=== PATIENT | male | born 1950 | race Caucasian/White ===

== ENCOUNTER 2019-08-25 21:01 | Observation (INO) ==
[2019-08-25] MEDS ORDERED: 0.9 % Sodium Chloride 1,000 ML IVC ONE (22:07)
[2019-08-25 22:35] LABS: Bilirubin,Urine Small (Negative); Blood,Urine Large (Negative); Clarity,Urine Cloudy (Clear); Color,Urine Dark Yellow (Yellow); Glucose,Urine (UA) Normal (Normal); Ketones,Urine Trace mg/dL (Negative); Leukocyte Esterase,Urine Moderate (Negative); Nitrite,Urine Positive (Negative); PH,Urine 6.5 pH Units (5.0-8.0); Protein,Urine 100 mg/dL (Neg-Trace); Specific Gravity,Urine > 1.030 (1.010-1.025); Urobilinogen,Urine Normal (Normal)
[2019-08-25 22:37] LABS: Bacteria,Urine Many per hpf (None-Few); Hyaline Casts,Urine None Seen per lpf (None-Few); RBC,Urine TNTC per hpf (0-3); Squamous Epithelial Cell,Urine Few per lpf (None-Few); WBC,Urine TNTC per hpf (0-3)
[2019-08-25] MEDS ORDERED: 0.9 % Sodium Chloride 1,000 ML IVC STA (22:41)
[2019-08-25 22:46] LABS: Hemoglobin 12.9 g/dL (12.9-16.9); Immature Platelets 2.1 % (1.1-6.1); Mean Corpuscular HGB Conc 33.1 g/dL (31.6-35.5); Mean Corpuscular Hemoglobin 31.5 pg (28.0-33.3); Mean Corpuscular Volume 95.4 fL (83.0-100.0); Mean Platelet Volume 9.7 fL (9.4-12.4); Red Blood Count 4.09 M/mcL (4.19-5.50)
[2019-08-25 22:51] LABS: Prothrombin Time 10.8 Seconds (9.4-12.1)
[2019-08-25 22:53] LABS: Activated Partial Thrombo Time 27.2 Seconds (26.0-36.0)
[2019-08-25] MEDS ORDERED: Piperacillin/Tazobactam 4.5 GM in 0.9 % Sodium Chloride Mini Bag 100 ML IVPB STA (22:55)
[2019-08-25] MEDS ORDERED: Piperacillin/Tazobactam 3.375 GM in 0.9 % Sodium Chloride Mini Bag 100 ML IVPB ONE (23:00)
[2019-08-25 23:28] LABS: White Blood Count 54.7 K/mcL (4.3-11.1)
[2019-08-25 23:29] LABS: Platelet Count 76 K/mcL (140-400)
[2019-08-25 23:31] LABS: Mean Platelet Volume 10.5 fL (9.4-12.4)
[2019-08-25 23:33] LABS: Hematocrit 38.3 % (37.5-50.1); Hemoglobin 12.5 g/dL (12.9-16.9); Mean Corpuscular HGB Conc 32.6 g/dL (31.6-35.5); Mean Corpuscular Hemoglobin 30.9 pg (28.0-33.3); Mean Corpuscular Volume 94.6 fL (83.0-100.0); Monocytes # 4.3 K/mcL (0.0-1.3); Red Blood Count 4.05 M/mcL (4.19-5.50); Red Cell Distribution Width 16.2 % (11.5-14.5)
[2019-08-25 23:35] LABS: Lymphocytes # 4.4 K/mcL (0.6-4.6); Monocytes # 2.7 K/mcL (0.0-1.3); Neutrophils # 44.3 K/mcL (1.6-8.9); Platelet Estimate Decreased (Normal); Smudge Cells Present (Not Present); Toxic Granulation Present (Not Present)
[2019-08-25 23:38] LABS: BUN/Creatinine Ratio 21 (6-26); Blood Urea Nitrogen 23 mg/dL (8-23); Calcium 9.1 mg/dL (8.6-10.3); Carbon Dioxide 21 mEq/L (23-29); Chloride 106 mEq/L (98-107); Glucose 103 mg/dL (70-105); Osmolality,Calculated 290 (280-300); Potassium 4.1 mEq/L (3.5-5.1); Sodium 138 mEq/L (136-145); Troponin I 0.03 ng/mL (< 0.04); eGFR For African Americans > 60 (> 60); eGFR For Non-African Americans > 60 (> 60)
[2019-08-25 23:43] LABS: White Blood Count 53.6 K/mcL (4.3-11.1)
[2019-08-25 23:44] LABS: Platelet Count 74 K/mcL (140-400)
[2019-08-25 23:59] LABS: Albumin 4.5 g/dL (3.5-5.7); Albumin/Globulin Ratio 1.3 (1.1-2.2); Bilirubin,Indirect 0.3 mg/dL (0.0-1.0); Bilirubin,Total 0.3 mg/dL (0.3-1.0); Globulin 3.4 g/dL (2.4-3.5); Phosphorous 2.8 mg/dL (2.7-4.5); Total Protein 7.9 g/dL (6.4-8.9)
[2019-08-26] MEDS ORDERED: Isovue-370 500 ML BOTTLE IVP ONE ×2 (00:11→00:20)
[2019-08-26 00:57] LABS: Lymphocytes # 8.6 K/mcL (0.6-4.6); Neutrophils # 40.7 K/mcL (1.6-8.9)
[2019-08-26 00:58] LABS: Platelet Estimate Decreased (Normal); Smudge Cells Present (Not Present); Toxic Granulation Present (Not Present); Toxic Vacuolation Present (Not Present)
[2019-08-26] MEDS ORDERED: 0.9 % Sodium Chloride 1,000 ML ONE (03:51)
[2019-08-26] MEDS: 0.9 % Sodium Chloride 1,000 ML IVC SCH (07:00)
[2019-08-26] MEDS ORDERED: Ondansetron 4 MG/2 ML VIAL IVP PRN (07:56)
[2019-08-26] MEDS ORDERED: Naloxone 0.4 MG/ML INJ IVP PRN (07:56)
[2019-08-26] MEDS ORDERED: Nicotine 7 MG PATCH.TD24 TD SCH (09:00)
[2019-08-26] MEDS: Piperacillin/Tazobactam 3.375 GM in 0.9 % Sodium Chloride Mini Bag 100 ML IVPB SCH ×2 (13:13→18:18)
[2019-08-26] MEDS: *HR* HYDROcodone/Acet 5/325 mg TABLET PO PRN ×2 (13:15→21:19)
[2019-08-26] MEDS: Ascorbic Acid 500 MG TABLET PO SCH (15:01)
[2019-08-26] MEDS: *HR* Heparin 5,000 UNIT/ML VIAL SQ SCH ×2 (15:01→21:21)
[2019-08-26] MEDS: Cholecalciferol (D-3) 1,000 UNIT (25MCG) TABLET PO SCH (15:01)
[2019-08-26] MEDS: *HR* LORazepam 0.5 MG TABLET PO PRN (16:25)
[2019-08-26] MEDS: Melatonin 3 MG TABLET PO SCH (21:18)
[2019-08-27 02:43] LABS: Hematocrit 36.3 % (37.5-50.1); Hemoglobin 12.2 g/dL (12.9-16.9); Mean Corpuscular HGB Conc 33.6 g/dL (31.6-35.5); Mean Corpuscular Hemoglobin 30.8 pg (28.0-33.3); Mean Corpuscular Volume 91.7 fL (83.0-100.0); Mean Platelet Volume 10.4 fL (9.4-12.4); Red Blood Count 3.96 M/mcL (4.19-5.50); Red Cell Distribution Width 16.5 % (11.5-14.5)
[2019-08-27] MEDS: Piperacillin/Tazobactam 3.375 GM in 0.9 % Sodium Chloride Mini Bag 100 ML IVPB SCH ×3 (02:50→18:09)
[2019-08-27] MEDS: 0.9 % Sodium Chloride 1,000 ML IVC SCH (03:02)
[2019-08-27] MEDS: *HR* Heparin 5,000 UNIT/ML VIAL SQ SCH ×4 (03:07→22:06)
[2019-08-27 03:23] LABS: Platelet Count 66 K/mcL (140-400); White Blood Count 44.8 K/mcL (4.3-11.1)
[2019-08-27 03:28] LABS: Monocytes # 0.5 K/mcL (0.0-1.3); Neutrophils # 35.4 K/mcL (1.6-8.9)
[2019-08-27 03:29] LABS: Anisocytosis 1+ (Not Present); Platelet Estimate Decreased (Normal)
[2019-08-27 03:30] LABS: Reactive Lymphocytes Present (Not Present); Toxic Granulation Present (Not Present)
[2019-08-27 04:07] LABS: BUN/Creatinine Ratio 14 (6-26); Blood Urea Nitrogen 17 mg/dL (8-23); Calcium 7.6 mg/dL (8.6-10.3); Carbon Dioxide 21 mEq/L (23-29); Chloride 113 mEq/L (98-107); Glucose 87 mg/dL (70-105); Osmolality,Calculated 293 (280-300); Phosphorous 2.3 mg/dL (2.7-4.5); Potassium 4.5 mEq/L (3.5-5.1); Sodium 141 mEq/L (136-145); eGFR For African Americans > 60 (> 60); eGFR For Non-African Americans > 60 (> 60)
[2019-08-27] MEDS: Nicotine 21 MG PATCH.TD24 TD SCH (11:02)
[2019-08-27] MEDS: Cholecalciferol (D-3) 1,000 UNIT (25MCG) TABLET PO SCH (11:04)
[2019-08-27] MEDS: Ascorbic Acid 500 MG TABLET PO SCH (11:04)
[2019-08-27] MEDS: Cyanocobalamin (B-12) 1,000 MCG TABLET PO SCH (11:04)
[2019-08-27] MEDS: *HR* HYDROcodone/Acet 5/325 mg TABLET PO PRN ×2 (12:48→20:26)
[2019-08-27] MEDS: Melatonin 3 MG TABLET PO SCH (20:26)
[2019-08-27] MEDS: *HR* LORazepam 0.5 MG TABLET PO PRN (20:26)
[2019-08-28 01:50] LABS: Hematocrit 39.4 % (37.5-50.1); Hemoglobin 12.9 g/dL (12.9-16.9); Mean Corpuscular HGB Conc 32.7 g/dL (31.6-35.5); Mean Corpuscular Hemoglobin 31.1 pg (28.0-33.3); Mean Corpuscular Volume 94.9 fL (83.0-100.0); Mean Platelet Volume 10.5 fL (9.4-12.4); Red Blood Count 4.15 M/mcL (4.19-5.50); Red Cell Distribution Width 17.1 % (11.5-14.5)
[2019-08-28 01:54] LABS: Platelet Count 61 K/mcL (140-400)
[2019-08-28 01:56] LABS: White Blood Count 41.3 K/mcL (4.3-11.1)
[2019-08-28] MEDS: Piperacillin/Tazobactam 3.375 GM in 0.9 % Sodium Chloride Mini Bag 100 ML IVPB SCH ×2 (02:02→10:38)
[2019-08-28 02:07] LABS: BUN/Creatinine Ratio 11 (6-26); Blood Urea Nitrogen 15 mg/dL (8-23); Calcium 8.5 mg/dL (8.6-10.3); Carbon Dioxide 25 mEq/L (23-29); Chloride 107 mEq/L (98-107); Glucose 86 mg/dL (70-105); Osmolality,Calculated 292 (280-300); Sodium 141 mEq/L (136-145); eGFR For African Americans > 60 (> 60); eGFR For Non-African Americans 51 (> 60)
[2019-08-28 02:31] LABS: Eosinophils # 0.4 K/mcL (0.0-0.6); Monocytes # 0.8 K/mcL (0.0-1.3); Neutrophils # 35.1 K/mcL (1.6-8.9)
[2019-08-28 02:32] LABS: Platelet Estimate Decreased (Normal); Reactive Lymphocytes Present (Not Present); Toxic Granulation Present (Not Present)
[2019-08-28] MEDS: *HR* Heparin 5,000 UNIT/ML VIAL SQ SCH ×2 (05:22→14:41)
[2019-08-28] MEDS ORDERED: 0.9 % Sodium Chloride 1,000 ML IVC SCH (08:00)
[2019-08-28] MEDS: Cholecalciferol (D-3) 1,000 UNIT (25MCG) TABLET PO SCH (10:37)
[2019-08-28] MEDS: Cyanocobalamin (B-12) 1,000 MCG TABLET PO SCH (10:38)
[2019-08-28] MEDS: Ascorbic Acid 500 MG TABLET PO SCH (10:38)
[2019-08-28] MEDS: Nicotine 21 MG PATCH.TD24 TD SCH (10:38)
[2019-08-28] MEDS ORDERED: FLU Vac QV 19-20 (6Month+)/PF 0.5 ML SYRINGE IM ONE (14:49)
[2019-08-28 15:53] VITALS: BP 123/84
== END 2019-08-28 16:20 | disposition home or self-care (01) ==
LOC: EMEROOARM 21:01 → CDU 21:01 → SUATTDRO 08-26 02:09 → CDU 08-26 03:01
PROVIDERS: ADMIT Internal Medicine; ATTEND Internal Medicine

== ENCOUNTER 2019-09-18 11:57 | Observation (INO) ==
[2019-09-18 13:12] LABS: Basophils % 0.2 %
[2019-09-18 13:14] LABS: Eosinophils % 0.3 %; Hematocrit 26.7 % (37.5-50.1); Hemoglobin 8.8 g/dL (12.9-16.9); Immature Granulocytes % 1.5 % (0-4); Immature Platelets 2.9 % (1.1-6.1); Lymphocytes # 1.7 K/mcL (0.6-4.6); Lymphocytes % 15.3 %; Mean Corpuscular Hemoglobin 31.8 pg (28.0-33.3); Mean Corpuscular Volume 96.4 fL (83.0-100.0); Mean Platelet Volume 11.8 fL (9.4-12.4); Monocytes % 9.1 %; Neutrophils # 8.1 K/mcL (1.6-8.9); Red Blood Count 2.77 M/mcL (4.19-5.50); Red Cell Distribution Width 18.1 % (11.5-14.5); Segmented Neutrophils % 73.6 %
[2019-09-18 13:21] LABS: Activated Partial Thrombo Time 22.2 Seconds (26.0-36.0); Prothrombin Time 11.9 Seconds (9.4-12.1)
[2019-09-18 13:27] LABS: BUN/Creatinine Ratio 20 (6-26); Blood Urea Nitrogen 19 mg/dL (8-23); Calcium 7.2 mg/dL (8.6-10.3); Carbon Dioxide 21 mEq/L (23-29); Chloride 103 mEq/L (98-107); Glucose 119 mg/dL (70-105); Osmolality,Calculated 283 (280-300); Potassium 3.5 mEq/L (3.5-5.1); Sodium 135 mEq/L (136-145); eGFR For African Americans > 60 (> 60); eGFR For Non-African Americans > 60 (> 60)
[2019-09-18 13:28] LABS: Platelet Count 26 K/mcL (140-400)
[2019-09-18 13:30] LABS: Troponin I < 0.03 ng/mL (< 0.04)
[2019-09-18] MEDS ORDERED: *HR* LORazepam 2 MG/ML VIAL IVP ONE (13:42)
[2019-09-18] MEDS ORDERED: *HR* FentaNYL (PF) 100 MCG/2 ML VIAL IVP ONE (13:42)
[2019-09-18] MEDS ORDERED: 0.9 % Sodium Chloride 1,000 ML IVC ONE (13:42)
[2019-09-18 14:14] LABS: Bilirubin,Urine Negative (Negative); Blood,Urine Large (Negative); Clarity,Urine Cloudy (Clear); Color,Urine Yellow (Yellow); Glucose,Urine (UA) Normal (Normal); Ketones,Urine Trace mg/dL (Negative); Leukocyte Esterase,Urine Small (Negative); Nitrite,Urine Negative (Negative); Protein,Urine 100 mg/dL (Neg-Trace); Specific Gravity,Urine 1.022 (1.010-1.025); Urobilinogen,Urine Normal (Normal)
[2019-09-18 14:17] LABS: Bacteria,Urine None Seen per hpf (None-Few); Hyaline Casts,Urine None Seen per lpf (None-Few); RBC,Urine TNTC per hpf (0-3); Squamous Epithelial Cell,Urine Many per lpf (None-Few); WBC,Urine 30-50 per hpf (0-3)
[2019-09-18] MEDS ORDERED: Naloxone 0.4 MG/ML INJ IVP PRN (16:59)
[2019-09-18] MEDS ORDERED: *HR* HYDROcodone/Acet 5/325 mg TABLET PO PRN (16:59)
[2019-09-18] MEDS ORDERED: Acetaminophen 325 MG TABLET PO PRN (16:59)
[2019-09-18] MEDS ORDERED: Ondansetron ODT 4 MG TAB.RAPDIS SL PRN (16:59)
[2019-09-18] MEDS ORDERED: 0.9 % Sodium Chloride 1,000 ML IVC SCH (17:00)
[2019-09-18 17:53] LABS: % Iron Saturation 9 % (20-55); Iron 20 mcg/dL (65-175); Transferrin 151 mg/dL (203-362)
[2019-09-18] MEDS ORDERED: *HR* LORazepam 0.5 MG TABLET PO ONE (18:36)
[2019-09-18] MEDS: Nicotine 21 MG PATCH.TD24 TD SCH (20:16)
[2019-09-18] MEDS: Fluticasone Propionate Nasal 50 MCG/SPRAY BOTTLE NS SCH (20:17)
[2019-09-18] MEDS ORDERED: dexAMETHasone 4 MG TABLET PO SCH (21:00)
[2019-09-18] MEDS ORDERED: Melatonin 3 MG TABLET PO SCH (21:00)
[2019-09-18 21:07] LABS: Hematocrit 24.4 % (37.5-50.1); Hemoglobin 8.4 g/dL (12.9-16.9)
[2019-09-18] MEDS: Ringers Solution, Lactated 1,000 ML IVC SCH (22:10)
[2019-09-19] MEDS: Melatonin 3 MG TABLET PO PRN ×2 (02:36→21:00)
[2019-09-19] MEDS: Simethicone 80 MG TAB.CHEW PO PRN ×2 (02:36→14:13)
[2019-09-19 06:47] LABS: Hematocrit 27.4 % (37.5-50.1); Hemoglobin 9.3 g/dL (12.9-16.9); Mean Corpuscular HGB Conc 33.9 g/dL (31.6-35.5); Mean Corpuscular Hemoglobin 31.8 pg (28.0-33.3); Mean Corpuscular Volume 93.8 fL (83.0-100.0); Red Blood Count 2.92 M/mcL (4.19-5.50)
[2019-09-19 06:49] LABS: Immature Platelets 4.6 % (1.1-6.1); Mean Platelet Volume 11.5 fL (9.4-12.4); Red Cell Distribution Width 18.6 % (11.5-14.5); White Blood Count 10.6 K/mcL (4.3-11.1)
[2019-09-19 07:03] LABS: BUN/Creatinine Ratio 13 (6-26); Blood Urea Nitrogen 14 mg/dL (8-23); Calcium 7.5 mg/dL (8.6-10.3); Carbon Dioxide 21 mEq/L (23-29); Chloride 107 mEq/L (98-107); Glucose 101 mg/dL (70-105); Magnesium 1.9 mg/dL (1.6-2.6); Osmolality,Calculated 289 (280-300); Phosphorous 1.1 mg/dL (2.7-4.5); Potassium 3.8 mEq/L (3.5-5.1); Sodium 139 mEq/L (136-145); eGFR For African Americans > 60 (> 60); eGFR For Non-African Americans > 60 (> 60)
[2019-09-19 07:21] LABS: Ferritin 1378 ng/mL (20-250)
[2019-09-19 07:29] LABS: Folate > 22.3 ng/mL (3.0-16.0)
[2019-09-19 07:30] LABS: Vitamin B12 > 1500 pg/mL (250-1100)
[2019-09-19] MEDS: Loratadine 10 MG TABLET PO SCH (08:32)
[2019-09-19] MEDS: Cholecalciferol (D-3) 1,000 UNIT (25MCG) TABLET PO SCH (08:32)
[2019-09-19] MEDS: Ringers Solution, Lactated 1,000 ML IVC SCH ×2 (08:33→21:04)
[2019-09-19] MEDS: Nicotine 21 MG PATCH.TD24 TD SCH (08:33)
[2019-09-19] MEDS: Fluticasone Propionate Nasal 50 MCG/SPRAY BOTTLE NS SCH (08:35)
[2019-09-19] MEDS: levoFLOXacin 750 MG/150 ML 750 MG/150 ML BAG IVPB SCH (10:18)
[2019-09-19] MEDS ORDERED: Ipratropium/Albuterol Neb 3 ML IH PRN (11:50)
[2019-09-19] MEDS: *HR* LORazepam 0.5 MG TABLET PO PRN (21:00)
[2019-09-20 04:36] LABS: Hemoglobin 8.1 g/dL (12.9-16.9)
[2019-09-20 04:38] LABS: Hematocrit 23.6 % (37.5-50.1); Immature Platelets 4.6 % (1.1-6.1); Mean Corpuscular HGB Conc 34.3 g/dL (31.6-35.5); Mean Corpuscular Hemoglobin 32.3 pg (28.0-33.3); Mean Platelet Volume 10.6 fL (9.4-12.4); Red Blood Count 2.51 M/mcL (4.19-5.50); Red Cell Distribution Width 18.5 % (11.5-14.5)
[2019-09-20 04:56] LABS: BUN/Creatinine Ratio 12 (6-26); Blood Urea Nitrogen 13 mg/dL (8-23); Calcium 7.6 mg/dL (8.6-10.3); Carbon Dioxide 23 mEq/L (23-29); Chloride 111 mEq/L (98-107); Glucose 103 mg/dL (70-105); Osmolality,Calculated 290 (280-300); Potassium 3.5 mEq/L (3.5-5.1); Sodium 140 mEq/L (136-145); eGFR For African Americans > 60 (> 60); eGFR For Non-African Americans > 60 (> 60)
[2019-09-20] MEDS: Ringers Solution, Lactated 1,000 ML IVC SCH ×2 (08:10→19:42)
[2019-09-20] MEDS ORDERED: 0.9 % Sodium Chloride 250 ML IVC SCH (08:30)
[2019-09-20] MEDS: Cholecalciferol (D-3) 1,000 UNIT (25MCG) TABLET PO SCH (08:49)
[2019-09-20] MEDS: Nicotine 21 MG PATCH.TD24 TD SCH (08:50)
[2019-09-20] MEDS: Loratadine 10 MG TABLET PO SCH (08:50)
[2019-09-20] MEDS: levoFLOXacin 750 MG/150 ML 750 MG/150 ML BAG IVPB SCH (08:51)
[2019-09-20] MEDS: Fluticasone Propionate Nasal 50 MCG/SPRAY BOTTLE NS SCH (08:52)
[2019-09-20] MEDS: Melatonin 3 MG TABLET PO PRN (21:11)
[2019-09-20] MEDS: *HR* LORazepam 0.5 MG TABLET PO PRN (21:11)
[2019-09-21 04:20] LABS: Hematocrit 26.4 % (37.5-50.1); Hemoglobin 8.9 g/dL (12.9-16.9); Mean Corpuscular HGB Conc 33.7 g/dL (31.6-35.5); Mean Corpuscular Hemoglobin 31.8 pg (28.0-33.3); Mean Corpuscular Volume 94.3 fL (83.0-100.0); Mean Platelet Volume 11.3 fL (9.4-12.4); Red Cell Distribution Width 18.5 % (11.5-14.5); White Blood Count 8.4 K/mcL (4.3-11.1)
[2019-09-21 04:22] LABS: Platelet Count 68 K/mcL (140-400)
[2019-09-21 04:41] LABS: BUN/Creatinine Ratio 12 (6-26); Blood Urea Nitrogen 13 mg/dL (8-23); Calcium 7.5 mg/dL (8.6-10.3); Carbon Dioxide 21 mEq/L (23-29); Chloride 112 mEq/L (98-107); Glucose 97 mg/dL (70-105); Osmolality,Calculated 288 (280-300); Potassium 3.7 mEq/L (3.5-5.1); Sodium 139 mEq/L (136-145); eGFR For African Americans > 60 (> 60); eGFR For Non-African Americans > 60 (> 60)
[2019-09-21 06:54] VITALS: BP 124/78
[2019-09-21] MEDS: Loratadine 10 MG TABLET PO SCH (08:59)
[2019-09-21] MEDS: Nicotine 21 MG PATCH.TD24 TD SCH (08:59)
[2019-09-21] MEDS: Cholecalciferol (D-3) 1,000 UNIT (25MCG) TABLET PO SCH (08:59)
[2019-09-21] MEDS: levoFLOXacin 750 MG/150 ML 750 MG/150 ML BAG IVPB SCH ×2 (09:00→09:04)
[2019-09-21] MEDS ORDERED: Multivit/Ca/Min/Fe/FA 1 TAB TABLET PO SCH (09:00)
[2019-09-21] MEDS ORDERED: Cyanocobalamin (B-12) 1,000 MCG TABLET PO SCH (09:00)
[2019-09-21] MEDS: Fluticasone Propionate Nasal 50 MCG/SPRAY BOTTLE NS SCH (09:01)
[2019-09-21] MEDS: levoFLOXacin 750 MG TABLET PO SCH ×2 (10:36→10:37)
[2019-09-21 11:00] LABS: Influenza A PCR Body Fluid NOT DETECTED; Influenza B PCR Body Fluid DETECTED
[2019-09-22 08:08] LABS: RSV PCR Body Fluid NOT DETECTED; RVP Body Fluid Source NOT PROVIDED
== END 2019-09-21 11:52 | disposition home or self-care (01) ==
LOC: 3ANU 11:57 → EMEROOARM 11:57 → SUATTDRO 14:57 → 3ANU 15:31
PROVIDERS: ADMIT Internal Medicine; ATTEND Internal Medicine

== ENCOUNTER 2020-02-17 04:59 | Inpatient (IN) ==
[2020-02-17] MEDS ORDERED: Naloxone 0.4 MG/ML INJ IVP PRN (07:10)
[2020-02-17] MEDS ORDERED: Ondansetron 4 MG/2 ML VIAL IVP PRN (07:10)
[2020-02-17] MEDS ORDERED: Ipratropium/Albuterol Neb 3 ML IH PRN (07:47)
[2020-02-17] MEDS: 0.9 % Sodium Chloride 1,000 ML IVC SCH ×2 (09:59→20:34)
[2020-02-17 10:38] LABS: Bilirubin,Urine Negative (Negative); Blood,Urine Moderate (Negative); Clarity,Urine Ex.Turbid (Clear); Color,Urine Dark-Red (Yellow); Glucose,Urine (UA) Normal (Normal); Ketones,Urine Negative (Negative); Leukocyte Esterase,Urine Negative (Negative); Nitrite,Urine Negative (Negative); PH,Urine 7.5 pH Units (5.0-8.0); Protein,Urine >=600 mg/dL (Neg-Trace); Specific Gravity,Urine 1.021 (1.010-1.025); Urobilinogen,Urine Normal (Normal)
[2020-02-17 10:47] LABS: Basophils % 0.3 %; Eosinophils % 0.4 %; Hematocrit 32.6 % (37.5-50.1); Hemoglobin 10.4 g/dL (12.9-16.9); Immature Granulocytes % 0.3 % (0-4); Lymphocytes # 1.9 K/mcL (0.6-4.6); Lymphocytes % 18.5 %; Mean Corpuscular HGB Conc 31.9 g/dL (31.6-35.5); Mean Corpuscular Hemoglobin 30.2 pg (28.0-33.3); Mean Corpuscular Volume 94.8 fL (83.0-100.0); Mean Platelet Volume 10.2 fL (9.4-12.4); Monocytes % 9.2 %; Neutrophils # 7.4 K/mcL (1.6-8.9); Platelet Count 149 K/mcL (140-400); Prothrombin Time 10.9 Seconds (9.4-12.1); Red Blood Count 3.44 M/mcL (4.19-5.50); Red Cell Distribution Width 13.7 % (11.5-14.5); Segmented Neutrophils % 71.3 %; White Blood Count 10.4 K/mcL (4.3-11.1)
[2020-02-17 10:54] LABS: Calcium 7.8 mg/dL (8.6-10.3); Potassium 4.7 mEq/L (3.5-5.1)
[2020-02-17] MEDS ORDERED: Hyoscyamine SL 0.125 MG TAB.SUBL SL PRN (14:00)
[2020-02-17] MEDS ORDERED: *HR* OxyCODONE Immed Rel 5 MG TABLET PO STA (14:04)
[2020-02-18 04:41] LABS: Basophils % 0.2 %; Eosinophils % 0.2 %; Hematocrit 24.4 % (37.5-50.1); Hemoglobin 7.7 g/dL (12.9-16.9); Immature Granulocytes % 0.4 % (0-4); Lymphocytes # 1.3 K/mcL (0.6-4.6); Lymphocytes % 8.5 %; Mean Corpuscular HGB Conc 31.6 g/dL (31.6-35.5); Mean Corpuscular Hemoglobin 30.6 pg (28.0-33.3); Mean Corpuscular Volume 96.8 fL (83.0-100.0); Monocytes # 1.5 K/mcL (0.0-1.3); Monocytes % 9.5 %; Neutrophils # 12.6 K/mcL (1.6-8.9); Platelet Count 132 K/mcL (140-400); Red Blood Count 2.52 M/mcL (4.19-5.50); Red Cell Distribution Width 13.9 % (11.5-14.5); Segmented Neutrophils % 81.2 %; White Blood Count 15.5 K/mcL (4.3-11.1)
[2020-02-18 05:00] LABS: Calcium 7.2 mg/dL (8.6-10.3); Magnesium 2.3 mg/dL (1.6-2.6); Potassium 5.7 mEq/L (3.5-5.1)
[2020-02-18] MEDS: 0.9 % Sodium Chloride 1,000 ML IVC SCH ×2 (09:03→21:29)
[2020-02-18] MEDS ORDERED: *HR* Midazolam HCl 2 MG/2 ML VIAL IVP ONE (11:36)
[2020-02-18] MEDS ORDERED: *HR* FentaNYL (PF) 100 MCG/2 ML VIAL IVP ONE (11:36)
[2020-02-18] MEDS ORDERED: cefTRIAXone 1,000 MG in 0.9 % Sodium Chloride Mini Bag 100 ML IVPB ONE (11:37)
[2020-02-18] MEDS ORDERED: 0.9 % Sodium Chloride 500 ML ONE (11:46)
[2020-02-18] MEDS ORDERED: Lidocaine/EPI 1:100k 1% 50 ML VIAL ONE (11:46)
[2020-02-18] MEDS ORDERED: Isovue-300 50ML VIAL IVP ONE (12:03)
[2020-02-18 17:31] LABS: Basophils % 0.3 %; Eosinophils # 0.1 K/mcL (0.0-0.6); Eosinophils % 1.1 %; Hematocrit 23.4 % (37.5-50.1); Hemoglobin 7.4 g/dL (12.9-16.9); Immature Granulocytes % 0.9 % (0-4); Lymphocytes # 1.9 K/mcL (0.6-4.6); Lymphocytes % 16.6 %; Mean Corpuscular HGB Conc 31.6 g/dL (31.6-35.5); Mean Corpuscular Hemoglobin 30.2 pg (28.0-33.3); Mean Corpuscular Volume 95.5 fL (83.0-100.0); Mean Platelet Volume 10.4 fL (9.4-12.4); Monocytes % 8.4 %; Neutrophils # 8.4 K/mcL (1.6-8.9); Platelet Count 117 K/mcL (140-400); Red Blood Count 2.45 M/mcL (4.19-5.50); Red Cell Distribution Width 14.1 % (11.5-14.5); Segmented Neutrophils % 72.7 %; White Blood Count 11.6 K/mcL (4.3-11.1)
[2020-02-18] MEDS ORDERED: 0.9 % Sodium Chloride 250 ML ONE (18:06)
[2020-02-18] MEDS: Melatonin 3 MG TABLET PO SCH (19:57)
[2020-02-19 01:11] LABS: Basophils % 0.2 %; Eosinophils # 0.2 K/mcL (0.0-0.6); Eosinophils % 2.1 %; Hematocrit 23.1 % (37.5-50.1); Hemoglobin 7.4 g/dL (12.9-16.9); Immature Granulocytes % 0.3 % (0-4); Lymphocytes # 1.8 K/mcL (0.6-4.6); Lymphocytes % 19.6 %; Mean Corpuscular Hemoglobin 30.7 pg (28.0-33.3); Mean Corpuscular Volume 95.9 fL (83.0-100.0); Mean Platelet Volume 9.8 fL (9.4-12.4); Monocytes # 0.7 K/mcL (0.0-1.3); Monocytes % 7.6 %; Neutrophils # 6.3 K/mcL (1.6-8.9); Platelet Count 113 K/mcL (140-400); Red Blood Count 2.41 M/mcL (4.19-5.50); Red Cell Distribution Width 14.4 % (11.5-14.5); Segmented Neutrophils % 70.2 %
[2020-02-19 01:33] LABS: Calcium 6.3 mg/dL (8.6-10.3); Potassium 4.5 mEq/L (3.5-5.1)
[2020-02-19] MEDS ORDERED: Acetaminophen 325 MG TABLET PO PRN (02:00)
[2020-02-19 07:13] LABS: Hematocrit 23.4 % (37.5-50.1); Hemoglobin 7.6 g/dL (12.9-16.9)
[2020-02-19] MEDS ORDERED: Calcium Gluconate 1gm/50mL 1 GM/50 ML BAG IVPB ONE (07:39)
[2020-02-19] MEDS: Lactulose Oral Soln 20 GM/30 ML UDC PO SCH (09:00)
[2020-02-19] MEDS ORDERED: NON-FORMULARY MEDICATION 1 EACH EACH (Calcium Carbonate/Vitamin D3 [Calcium 500-Vit D3 125 PO SCH (09:00)
[2020-02-19] MEDS: Multivit/Ca/Min/Fe/FA 1 TAB TABLET PO SCH (09:01)
[2020-02-19] MEDS: Cyanocobalamin (B-12) 1,000 MCG TABLET PO SCH (09:01)
[2020-02-19] MEDS: Cholecalciferol (D-3) 1,000 UNIT (25MCG) TABLET PO SCH (09:01)
[2020-02-19] MEDS: 0.9 % Sodium Chloride 1,000 ML IVC SCH ×2 (09:17→20:02)
[2020-02-19] MEDS: Melatonin 3 MG TABLET PO SCH (21:55)
[2020-02-20] MEDS: 0.9 % Sodium Chloride 1,000 ML IVC SCH ×2 (06:42→20:01)
[2020-02-20] MEDS ORDERED: *HR* FentaNYL (PF) 100 MCG/2 ML VIAL ONE (07:18)
[2020-02-20] MEDS ORDERED: *HR* Midazolam HCl 5 MG/5 ML VIAL IVP ONE ×2 (07:18→07:37)
[2020-02-20] MEDS ORDERED: *HR* FentaNYL (PF) 100 MCG/2 ML VIAL IVP ONE (07:37)
[2020-02-20] MEDS: Simethicone 80 MG TAB.CHEW PO PRN (11:22)
[2020-02-20] MEDS: Multivit/Ca/Min/Fe/FA 1 TAB TABLET PO SCH (11:23)
[2020-02-20] MEDS: Lactulose Oral Soln 20 GM/30 ML UDC PO SCH (11:23)
[2020-02-20] MEDS: Cyanocobalamin (B-12) 1,000 MCG TABLET PO SCH (11:23)
[2020-02-20] MEDS: Cholecalciferol (D-3) 1,000 UNIT (25MCG) TABLET PO SCH (11:23)
[2020-02-20 12:02] LABS: Basophils % 0.4 %; Eosinophils # 0.2 K/mcL (0.0-0.6); Eosinophils % 2.1 %; Hematocrit 23.3 % (37.5-50.1); Hemoglobin 7.3 g/dL (12.9-16.9); Immature Granulocytes % 0.4 % (0-4); Lymphocytes # 1.3 K/mcL (0.6-4.6); Lymphocytes % 18.1 %; Mean Corpuscular HGB Conc 31.3 g/dL (31.6-35.5); Mean Corpuscular Hemoglobin 29.9 pg (28.0-33.3); Mean Corpuscular Volume 95.5 fL (83.0-100.0); Monocytes # 0.6 K/mcL (0.0-1.3); Monocytes % 8.4 %; Platelet Count 131 K/mcL (140-400); Red Blood Count 2.44 M/mcL (4.19-5.50); Segmented Neutrophils % 70.6 %; White Blood Count 7.1 K/mcL (4.3-11.1)
[2020-02-20 12:18] LABS: Calcium 6.8 mg/dL (8.6-10.3); Potassium 4.2 mEq/L (3.5-5.1)
[2020-02-20] MEDS: Melatonin 3 MG TABLET PO SCH (21:56)
[2020-02-21] MEDS: 0.9 % Sodium Chloride 1,000 ML IVC SCH ×4 (04:34→23:29)
[2020-02-21 04:52] LABS: Basophils % 0.4 %; Eosinophils # 0.3 K/mcL (0.0-0.6); Eosinophils % 4.3 %; Hematocrit 22.1 % (37.5-50.1); Hemoglobin 7.3 g/dL (12.9-16.9); Immature Granulocytes % 0.1 % (0-4); Mean Corpuscular Hemoglobin 31.5 pg (28.0-33.3); Mean Corpuscular Volume 95.3 fL (83.0-100.0); Mean Platelet Volume 9.5 fL (9.4-12.4); Monocytes # 0.6 K/mcL (0.0-1.3); Monocytes % 8.4 %; Neutrophils # 4.1 K/mcL (1.6-8.9); Platelet Count 136 K/mcL (140-400); Red Blood Count 2.32 M/mcL (4.19-5.50); Segmented Neutrophils % 58.8 %
[2020-02-21 05:12] LABS: Potassium 3.8 mEq/L (3.5-5.1)
[2020-02-21] MEDS: Lactulose Oral Soln 20 GM/30 ML UDC PO SCH (08:57)
[2020-02-21] MEDS: Cholecalciferol (D-3) 1,000 UNIT (25MCG) TABLET PO SCH (08:57)
[2020-02-21] MEDS: Cyanocobalamin (B-12) 1,000 MCG TABLET PO SCH (08:57)
[2020-02-21] MEDS: Multivit/Ca/Min/Fe/FA 1 TAB TABLET PO SCH (08:57)
[2020-02-21] MEDS: Simethicone 80 MG TAB.CHEW PO PRN (18:41)
[2020-02-21] MEDS ORDERED: 0.9 % Sodium Chloride 250 ML ONE (21:54)
[2020-02-21] MEDS: Melatonin 3 MG TABLET PO SCH (22:00)
[2020-02-22] MEDS: Simethicone 80 MG TAB.CHEW PO PRN ×2 (03:53→20:22)
[2020-02-22 04:16] LABS: Basophils % 0.5 %; Eosinophils # 0.4 K/mcL (0.0-0.6); Eosinophils % 5.6 %; Hematocrit 26.7 % (37.5-50.1); Hemoglobin 8.7 g/dL (12.9-16.9); Immature Granulocytes % 0.3 % (0-4); Lymphocytes # 2.1 K/mcL (0.6-4.6); Lymphocytes % 27.5 %; Mean Corpuscular HGB Conc 32.6 g/dL (31.6-35.5); Mean Platelet Volume 9.9 fL (9.4-12.4); Monocytes # 0.7 K/mcL (0.0-1.3); Monocytes % 9.1 %; Neutrophils # 4.3 K/mcL (1.6-8.9); Platelet Count 167 K/mcL (140-400); Red Blood Count 2.81 M/mcL (4.19-5.50); Red Cell Distribution Width 13.5 % (11.5-14.5); White Blood Count 7.5 K/mcL (4.3-11.1)
[2020-02-22 04:36] LABS: Calcium 7.4 mg/dL (8.6-10.3); Potassium 3.9 mEq/L (3.5-5.1)
[2020-02-22] MEDS ORDERED: *HR* Midazolam HCl 2 MG/2 ML VIAL IVP PRN (07:23)
[2020-02-22] MEDS ORDERED: *HR* FentaNYL (PF) 100 MCG/2 ML VIAL IVP PRN (07:23)
[2020-02-22] MEDS ORDERED: *HR* FentaNYL (PF) 100 MCG/2 ML VIAL ONE ×2 (07:31→08:35)
[2020-02-22] MEDS ORDERED: Ondansetron 4 MG/2 ML VIAL ONE (07:31)
[2020-02-22] MEDS ORDERED: Dexamethasone 4 MG/ML VIAL ONE (07:31)
[2020-02-22] MEDS ORDERED: *HR* Propofol 200 MG/20 ML VIAL IVP ONE (07:31)
[2020-02-22] MEDS ORDERED: *HR* Midazolam HCl 2 MG/2 ML VIAL ONE (07:31)
[2020-02-22] MEDS ORDERED: Lidocaine -MPF 2% 2 ML VIAL ONE (07:31)
[2020-02-22] MEDS ORDERED: *HR* PHENYLEPHRINE 1,000 MCG/10 ML SYRINGE IVP ONE (08:19)
[2020-02-22] MEDS ORDERED: *HR* Metoprolol 5 MG/5 ML VIAL IVP ONE (08:26)
[2020-02-22] MEDS ORDERED: *HR* HYDROMORPHONE 2 MG/ML VIAL ONE (09:19)
[2020-02-22] MEDS ORDERED: *HR* Belladonna Alkaloids/Opium 30 MG RECTAL SUPPOSITORY RC ONE (09:31)
[2020-02-22] MEDS: *HR* HYDROmorphone PF 0.5 MG/0.5 ML SYRINGE IVP PRN ×3 (09:34→09:58)
[2020-02-22] MEDS ORDERED: Ringers Solution, Lactated 1,000 ML ONE (10:13)
[2020-02-22] MEDS ORDERED: Acetaminophen 325 MG TABLET PO PRN (10:40)
[2020-02-22] MEDS ORDERED: *HR* Belladonna Alkaloids/Opium 30 MG RECTAL SUPPOSITORY RC PRN (10:40)
[2020-02-22] MEDS ORDERED: Ipratropium/Albuterol Neb 3 ML IH PRN (10:40)
[2020-02-22] MEDS ORDERED: Ondansetron 4 MG/2 ML VIAL IVP PRN (10:40)
[2020-02-22] MEDS ORDERED: Naloxone 0.4 MG/ML INJ IVP PRN (10:40)
[2020-02-22] MEDS ORDERED: Hyoscyamine SL 0.125 MG TAB.SUBL SL PRN (10:40)
[2020-02-22] MEDS: 0.9 % Sodium Chloride 1,000 ML IVC SCH ×2 (10:52→23:57)
[2020-02-22] MEDS: Lactulose Oral Soln 20 GM/30 ML UDC PO SCH (10:53)
[2020-02-22] MEDS: Cyanocobalamin (B-12) 1,000 MCG TABLET PO SCH (10:53)
[2020-02-22] MEDS: Cholecalciferol (D-3) 1,000 UNIT (25MCG) TABLET PO SCH (10:53)
[2020-02-22] MEDS: Multivit/Ca/Min/Fe/FA 1 TAB TABLET PO SCH (10:53)
[2020-02-22] MEDS: Melatonin 3 MG TABLET PO SCH (20:22)
[2020-02-23 04:15] LABS: Basophils % 0.1 %; Eosinophils % 0.2 %; Hematocrit 27.3 % (37.5-50.1); Immature Granulocytes % 0.4 % (0-4); Lymphocytes # 1.5 K/mcL (0.6-4.6); Lymphocytes % 10.9 %; Mean Corpuscular Hemoglobin 31.1 pg (28.0-33.3); Mean Corpuscular Volume 94.5 fL (83.0-100.0); Mean Platelet Volume 9.5 fL (9.4-12.4); Monocytes % 7.2 %; Platelet Count 175 K/mcL (140-400); Red Blood Count 2.89 M/mcL (4.19-5.50); Red Cell Distribution Width 13.5 % (11.5-14.5); Segmented Neutrophils % 81.2 %; White Blood Count 13.5 K/mcL (4.3-11.1)
[2020-02-23 04:37] LABS: Calcium 7.7 mg/dL (8.6-10.3); Potassium 4.5 mEq/L (3.5-5.1)
[2020-02-23] MEDS: Multivit/Ca/Min/Fe/FA 1 TAB TABLET PO SCH (09:11)
[2020-02-23] MEDS: Cyanocobalamin (B-12) 1,000 MCG TABLET PO SCH (09:12)
[2020-02-23] MEDS: Lactulose Oral Soln 20 GM/30 ML UDC PO SCH (09:12)
[2020-02-23] MEDS: Cholecalciferol (D-3) 1,000 UNIT (25MCG) TABLET PO SCH (09:20)
[2020-02-23] MEDS: Simethicone 80 MG TAB.CHEW PO PRN (12:29)
[2020-02-23] MEDS: 0.9 % Sodium Chloride 1,000 ML IVC SCH (13:35)
[2020-02-23] MEDS: Melatonin 3 MG TABLET PO SCH (21:04)
[2020-02-24 03:58] LABS: Basophils % 0.3 %; Eosinophils # 0.6 K/mcL (0.0-0.6); Eosinophils % 4.9 %; Hemoglobin 8.4 g/dL (12.9-16.9); Immature Granulocytes % 0.8 % (0-4); Lymphocytes # 2.8 K/mcL (0.6-4.6); Lymphocytes % 23.9 %; Mean Corpuscular HGB Conc 32.3 g/dL (31.6-35.5); Mean Corpuscular Hemoglobin 31.1 pg (28.0-33.3); Mean Corpuscular Volume 96.3 fL (83.0-100.0); Mean Platelet Volume 9.9 fL (9.4-12.4); Monocytes # 0.9 K/mcL (0.0-1.3); Monocytes % 7.8 %; Neutrophils # 7.2 K/mcL (1.6-8.9); Platelet Count 189 K/mcL (140-400); Red Cell Distribution Width 14.2 % (11.5-14.5); Segmented Neutrophils % 62.3 %; White Blood Count 11.6 K/mcL (4.3-11.1)
[2020-02-24 04:16] LABS: Calcium 7.6 mg/dL (8.6-10.3); Potassium 4.5 mEq/L (3.5-5.1)
[2020-02-24] MEDS: 0.9 % Sodium Chloride 1,000 ML IVC SCH (06:03)
[2020-02-24 07:13] VITALS: BP 129/76
[2020-02-24] MEDS: Multivit/Ca/Min/Fe/FA 1 TAB TABLET PO SCH (09:01)
[2020-02-24] MEDS: Cholecalciferol (D-3) 1,000 UNIT (25MCG) TABLET PO SCH (09:01)
[2020-02-24] MEDS: Lactulose Oral Soln 20 GM/30 ML UDC PO SCH (09:01)
[2020-02-24] MEDS: Cyanocobalamin (B-12) 1,000 MCG TABLET PO SCH (09:01)
== END 2020-02-24 09:53 | disposition home health service (06) | DRG 656 ==
LOC: 3ANU → SUATTDRO 06:48
PROVIDERS: ADMIT Student in an Organized Health Care Education/Training Program; ATTEND Internal Medicine

== ENCOUNTER 2020-04-21 10:19 | Inpatient (IN) ==
[2020-04-21] MEDS ORDERED: 0.9 % Sodium Chloride 1,000 ML IVC ONE (10:35)
[2020-04-21] MEDS ORDERED: *HR* FentaNYL (PF) 100 MCG/2 ML VIAL IVP ONE (10:35)
[2020-04-21] MEDS ORDERED: Ondansetron 4 MG/2 ML VIAL IVP ONE (10:35)
[2020-04-21 11:21] LABS: Basophils % 0.3 %; Eosinophils # 0.1 K/mcL (0.0-0.6); Hematocrit 33.4 % (37.5-50.1); Hemoglobin 10.3 g/dL (12.9-16.9); Immature Granulocytes % 0.6 % (0-4); Lymphocytes # 1.6 K/mcL (0.6-4.6); Lymphocytes % 13.7 %; Mean Corpuscular HGB Conc 30.8 g/dL (31.6-35.5); Mean Corpuscular Hemoglobin 28.1 pg (28.0-33.3); Mean Platelet Volume 10.1 fL (9.4-12.4); Monocytes # 0.8 K/mcL (0.0-1.3); Monocytes % 6.6 %; Neutrophils # 9.1 K/mcL (1.6-8.9); Platelet Count 307 K/mcL (140-400); Red Blood Count 3.67 M/mcL (4.19-5.50); Red Cell Distribution Width 14.6 % (11.5-14.5); Segmented Neutrophils % 77.8 %; White Blood Count 11.7 K/mcL (4.3-11.1)
[2020-04-21 11:23] LABS: Bacteria,Urine Few per hpf (None-Few); Bilirubin,Urine Negative (Negative); Blood,Urine Moderate (Negative); Clarity,Urine Turbid (Clear); Color,Urine Yellow (Yellow); Glucose,Urine (UA) Normal (Normal); Ketones,Urine Trace mg/dL (Negative); Leukocyte Esterase,Urine Large (Negative); Mucus,Urine Few per lpf (None-Few); Nitrite,Urine Positive (Negative); Protein,Urine >=300 mg/dL (Neg-Trace); RBC,Urine 30-50 per hpf (0-3); Specific Gravity,Urine 1.021 (1.010-1.025); Uric Acid Crystals,Urine Present; Urobilinogen,Urine Normal (Normal); WBC,Urine TNTC per hpf (0-3)
[2020-04-21 11:45] LABS: Alanine Aminotransferase 11 Units/L (7-52); Albumin 3.8 g/dL (3.5-5.7); Albumin/Globulin Ratio 0.9 (1.1-2.2); Alkaline Phosphatase 144 Units/L (34-104); Aspartate Amino Transferase 10 Units/L (13-39); BUN/Creatinine Ratio 13 (6-26); Bilirubin,Total 0.3 mg/dL (0.3-1.0); Blood Urea Nitrogen 27 mg/dL (8-23); Calcium 7.2 mg/dL (8.6-10.3); Carbon Dioxide 19 mEq/L (23-29); Chloride 108 mEq/L (98-107); Globulin 4.2 g/dL (2.4-3.5); Glucose 119 mg/dL (70-105); Osmolality,Calculated 290 (280-300); Potassium 2.2 mEq/L (3.5-5.1); Sodium 137 mEq/L (136-145); Troponin I < 0.03 ng/mL (< 0.04); eGFR For African Americans 38 (> 60); eGFR For Non-African Americans 32 (> 60)
[2020-04-21] MEDS ORDERED: Potassium Chloride 40 MEQ, Lidocaine 1% 2 ML in 0.9 % Sodium Chloride 500 ML IVPB ONE (11:59)
[2020-04-21] MEDS ORDERED: cefTRIAXone 1,000 MG in 0.9 % Sodium Chloride Mini Bag 100 ML IVPB ONE (12:21)
[2020-04-21 12:41] LABS: Magnesium 2.6 mg/dL (1.6-2.6)
[2020-04-21] MEDS ORDERED: Ondansetron ODT 4 MG TAB.RAPDIS SL PRN (13:57)
[2020-04-21] MEDS ORDERED: Naloxone 0.4 MG/ML INJ IVP PRN (14:03)
[2020-04-21] MEDS: 0.9 % Sodium Chloride 1,000 ML IVC SCH (14:58)
[2020-04-21 16:27] LABS: Calcium 6.9 mg/dL (8.6-10.3); Potassium 2.5 mEq/L (3.5-5.1)
[2020-04-21 17:17] LABS: Adenovirus F 40/41 PCR Not detected (Not detect); Astrovirus PCR Not detected (Not detect); C.difficile Toxin A/B Gene PCR Not detected (Not detect); Campylobacter by PCR Not detected (Not detect); Cryptosporidium by PCR Not detected (Not detect); Cyclospora cayetanensis PCR Not detected (Not detect); E. coli O157 by PCR Not detected (Not detect); Entamoeba histolytica PCR Not detected (Not detect); Enteroaggregative E.coli(EAEC) Not detected (Not detect); Enteropathogenic E.coli(EPEC) DETECTED (Not detect); Enterotoxigenic E.coli (ETEC) Not detected (Not detect); Giardia lamblia PCR Not detected (Not detect); Norovirus GI/GII PCR Not detected (Not detect); Plesiomonas shigelloides PCR Not detected (Not detect); Rotavirus A PCR Not detected (Not detect); Salmonella PCR Not detected (Not detect); Sapovirus PCR Not detected (Not detect); Shig/EnteroinvasiveE coli EIEC Not detected (Not detect); Shigalike tox-prod E coli STEC Not detected (Not detect); Vibrio PCR Not detected (Not detect); Vibrio cholerae PCR Not detected (Not detect); Yersinia enterocolitica PCR Not detected (Not detect)
[2020-04-21] MEDS: *HR* Heparin 5,000 UNIT/ML VIAL SQ SCH (17:46)
[2020-04-21 19:14] LABS: Calcium 6.9 mg/dL (8.6-10.3); Potassium 2.8 mEq/L (3.5-5.1)
[2020-04-21] MEDS: Melatonin 3 MG TABLET PO SCH (20:50)
[2020-04-21] MEDS ORDERED: dexAMETHasone 4 MG TABLET PO SCH (21:00)
[2020-04-22] MEDS: 0.9 % Sodium Chloride 1,000 ML IVC SCH (00:56)
[2020-04-22] MEDS ORDERED: Potassium Chloride 40 MEQ, Lidocaine 1% 2 ML in 0.9 % Sodium Chloride 500 ML IVPB ONE (03:00)
[2020-04-22] MEDS: *HR* Heparin 5,000 UNIT/ML VIAL SQ SCH ×2 (04:08→17:32)
[2020-04-22 05:33] LABS: Basophils % 0.3 %; Eosinophils # 0.1 K/mcL (0.0-0.6); Eosinophils % 1.2 %; Hematocrit 31.8 % (37.5-50.1); Hemoglobin 9.7 g/dL (12.9-16.9); Immature Granulocytes % 0.8 % (0-4); Lymphocytes # 1.2 K/mcL (0.6-4.6); Lymphocytes % 10.5 %; Mean Corpuscular HGB Conc 30.5 g/dL (31.6-35.5); Mean Corpuscular Hemoglobin 27.8 pg (28.0-33.3); Mean Corpuscular Volume 91.1 fL (83.0-100.0); Mean Platelet Volume 9.8 fL (9.4-12.4); Monocytes # 0.9 K/mcL (0.0-1.3); Monocytes % 7.7 %; Neutrophils # 9.4 K/mcL (1.6-8.9); Platelet Count 260 K/mcL (140-400); Red Blood Count 3.49 M/mcL (4.19-5.50); Red Cell Distribution Width 14.7 % (11.5-14.5); Segmented Neutrophils % 79.5 %; White Blood Count 11.8 K/mcL (4.3-11.1)
[2020-04-22 05:45] LABS: Calcium 7.3 mg/dL (8.6-10.3); Potassium 2.7 mEq/L (3.5-5.1)
[2020-04-22] MEDS: Nicotine 14 MG PATCH.TD24 TD SCH (09:29)
[2020-04-22] MEDS: Cholecalciferol (D-3) 1,000 UNIT (25MCG) TABLET PO SCH (09:29)
[2020-04-22] MEDS: Azithromycin 250 MG TABLET PO SCH (09:29)
[2020-04-22] MEDS: *HR* OxyCODONE Immed Rel 5 MG TABLET PO PRN (09:37)
[2020-04-22] MEDS: cefTRIAXone 1,000 MG in Water for inj. (sterile) 10 ML IVP SCH (15:46)
[2020-04-22] MEDS ORDERED: Potassium Chloride Elixir 20 MEQ/15 ML UDC PO ONE (18:37)
[2020-04-22] MEDS: Melatonin 3 MG TABLET PO SCH (20:28)
[2020-04-23] MEDS: 0.9 % Sodium Chloride 1,000 ML IVC SCH ×2 (05:03→13:05)
[2020-04-23] MEDS: *HR* Heparin 5,000 UNIT/ML VIAL SQ SCH ×2 (05:05→18:36)
[2020-04-23 05:33] LABS: Basophils % 0.4 %; Eosinophils # 0.2 K/mcL (0.0-0.6); Eosinophils % 1.9 %; Hematocrit 29.9 % (37.5-50.1); Hemoglobin 9.3 g/dL (12.9-16.9); Immature Granulocytes % 0.8 % (0-4); Lymphocytes # 1.7 K/mcL (0.6-4.6); Lymphocytes % 17.7 %; Mean Corpuscular HGB Conc 31.1 g/dL (31.6-35.5); Mean Corpuscular Hemoglobin 28.8 pg (28.0-33.3); Mean Corpuscular Volume 92.6 fL (83.0-100.0); Mean Platelet Volume 10.3 fL (9.4-12.4); Monocytes % 10.2 %; Neutrophils # 6.6 K/mcL (1.6-8.9); Platelet Count 239 K/mcL (140-400); Red Blood Count 3.23 M/mcL (4.19-5.50); Red Cell Distribution Width 14.8 % (11.5-14.5); White Blood Count 9.5 K/mcL (4.3-11.1)
[2020-04-23 05:54] LABS: Calcium 7.6 mg/dL (8.6-10.3); Potassium 2.7 mEq/L (3.5-5.1)
[2020-04-23] MEDS ORDERED: Potassium Chloride 40 MEQ, Lidocaine 1% 2 ML in 0.9 % Sodium Chloride 500 ML IVPB ONE (06:41)
[2020-04-23] MEDS ORDERED: Potassium Chloride Elixir 20 MEQ/15 ML UDC PO ONE (06:42)
[2020-04-23] MEDS: cefTRIAXone 1,000 MG in Water for inj. (sterile) 10 ML IVP SCH (08:51)
[2020-04-23] MEDS: Nicotine 14 MG PATCH.TD24 TD SCH (09:06)
[2020-04-23] MEDS: Cholecalciferol (D-3) 1,000 UNIT (25MCG) TABLET PO SCH (09:07)
[2020-04-23] MEDS: Azithromycin 250 MG TABLET PO SCH (09:08)
[2020-04-23] MEDS: *HR* OxyCODONE Immed Rel 5 MG TABLET PO PRN (09:08)
[2020-04-23] MEDS: *HR* OxyCODONE Immed Rel 5 MG TABLET PO SCH (13:58)
[2020-04-23] MEDS ORDERED: POTASSIUM CHLORIDE IVC SCH (14:00)
[2020-04-23] MEDS ORDERED: [UNRECOGNIZED DRUG - OTHER] IVC SCH (14:00)
[2020-04-23] MEDS ORDERED: SODIUM BICARBONATE IVC SCH (14:00)
[2020-04-23 20:34] LABS: Potassium,Urine 24.2 mEq/L; Sodium, Urine 104.9 mEq/L
[2020-04-23] MEDS: Melatonin 3 MG TABLET PO SCH (21:07)
[2020-04-24] MEDS ORDERED: Famotidine 20 MG TABLET PO ONE (00:54)
[2020-04-24] MEDS: 0.9 % Sodium Chloride 1,000 ML IVC SCH ×2 (02:24→18:29)
[2020-04-24] MEDS: *HR* Heparin 5,000 UNIT/ML VIAL SQ SCH ×2 (05:50→18:25)
[2020-04-24 08:46] LABS: Basophils % 0.3 %; Eosinophils # 0.2 K/mcL (0.0-0.6); Eosinophils % 2.3 %; Hematocrit 27.5 % (37.5-50.1); Hemoglobin 8.6 g/dL (12.9-16.9); Immature Granulocytes % 0.7 % (0-4); Lymphocytes # 1.5 K/mcL (0.6-4.6); Lymphocytes % 15.6 %; Mean Corpuscular HGB Conc 31.3 g/dL (31.6-35.5); Mean Corpuscular Hemoglobin 28.9 pg (28.0-33.3); Mean Corpuscular Volume 92.3 fL (83.0-100.0); Mean Platelet Volume 10.3 fL (9.4-12.4); Monocytes # 0.8 K/mcL (0.0-1.3); Monocytes % 8.1 %; Neutrophils # 7.1 K/mcL (1.6-8.9); Platelet Count 207 K/mcL (140-400); Red Blood Count 2.98 M/mcL (4.19-5.50); Red Cell Distribution Width 14.8 % (11.5-14.5); White Blood Count 9.7 K/mcL (4.3-11.1)
[2020-04-24 09:07] LABS: Calcium 7.3 mg/dL (8.6-10.3); Potassium 2.9 mEq/L (3.5-5.1)
[2020-04-24] MEDS ORDERED: Sodium Bicarbonate 150 MEQ in D5% in Water 1,000 ML IVC SCH (09:30)
[2020-04-24 09:33] LABS: Magnesium 1.6 mg/dL (1.6-2.6)
[2020-04-24] MEDS: Cholecalciferol (D-3) 1,000 UNIT (25MCG) TABLET PO SCH (10:19)
[2020-04-24] MEDS: *HR* OxyCODONE Immed Rel 5 MG TABLET PO SCH ×2 (10:19→13:36)
[2020-04-24] MEDS: Azithromycin 250 MG TABLET PO SCH (10:19)
[2020-04-24] MEDS: Nicotine 14 MG PATCH.TD24 TD SCH (10:21)
[2020-04-24] MEDS: cefTRIAXone 1,000 MG in Water for inj. (sterile) 10 ML IVP SCH (10:21)
[2020-04-24] MEDS: Melatonin 3 MG TABLET PO SCH (21:09)
[2020-04-25] MEDS: *HR* Heparin 5,000 UNIT/ML VIAL SQ SCH ×2 (06:00→17:53)
[2020-04-25] MEDS: Nicotine 14 MG PATCH.TD24 TD SCH (10:03)
[2020-04-25] MEDS: *HR* OxyCODONE Immed Rel 5 MG TABLET PO SCH ×2 (10:04→12:38)
[2020-04-25] MEDS: Cholecalciferol (D-3) 1,000 UNIT (25MCG) TABLET PO SCH (10:04)
[2020-04-25] MEDS: cefTRIAXone 1,000 MG in Water for inj. (sterile) 10 ML IVP SCH (10:05)
[2020-04-25] MEDS ORDERED: methylPREDNISolone 125 MG/2 ML VIAL IVP ONE (11:23)
[2020-04-25 12:23] LABS: Basophils % 0.4 %; Eosinophils # 0.3 K/mcL (0.0-0.6); Eosinophils % 2.6 %; Hematocrit 26.8 % (37.5-50.1); Hemoglobin 8.5 g/dL (12.9-16.9); Immature Granulocytes % 0.6 % (0-4); Lymphocytes # 1.7 K/mcL (0.6-4.6); Lymphocytes % 17.3 %; Mean Corpuscular HGB Conc 31.7 g/dL (31.6-35.5); Mean Corpuscular Hemoglobin 28.6 pg (28.0-33.3); Mean Corpuscular Volume 90.2 fL (83.0-100.0); Mean Platelet Volume 10.4 fL (9.4-12.4); Monocytes # 0.7 K/mcL (0.0-1.3); Monocytes % 7.5 %; Platelet Count 207 K/mcL (140-400); Red Blood Count 2.97 M/mcL (4.19-5.50); Red Cell Distribution Width 14.9 % (11.5-14.5); Segmented Neutrophils % 71.6 %; White Blood Count 9.7 K/mcL (4.3-11.1)
[2020-04-25 12:42] LABS: Potassium 2.8 mEq/L (3.5-5.1)
[2020-04-25] MEDS: Melatonin 3 MG TABLET PO SCH (20:12)
[2020-04-26] MEDS: *HR* Heparin 5,000 UNIT/ML VIAL SQ SCH ×2 (04:31→17:05)
[2020-04-26 04:55] LABS: Basophils % 0.2 %; Hematocrit 24.2 % (37.5-50.1); Hemoglobin 7.7 g/dL (12.9-16.9); Immature Granulocytes % 1.1 % (0-4); Lymphocytes # 0.6 K/mcL (0.6-4.6); Lymphocytes % 9.5 %; Mean Corpuscular HGB Conc 31.8 g/dL (31.6-35.5); Mean Corpuscular Hemoglobin 28.6 pg (28.0-33.3); Mean Platelet Volume 10.3 fL (9.4-12.4); Monocytes # 0.1 K/mcL (0.0-1.3); Monocytes % 1.3 %; Neutrophils # 5.5 K/mcL (1.6-8.9); Platelet Count 172 K/mcL (140-400); Red Blood Count 2.69 M/mcL (4.19-5.50); Red Cell Distribution Width 14.8 % (11.5-14.5); Segmented Neutrophils % 87.9 %; White Blood Count 6.2 K/mcL (4.3-11.1)
[2020-04-26 05:14] LABS: Calcium 6.1 mg/dL (8.6-10.3); Magnesium 1.6 mg/dL (1.6-2.6); Phosphorous 1.7 mg/dL (2.7-4.5); Potassium 3.1 mEq/L (3.5-5.1)
[2020-04-26] MEDS ORDERED: Potassium Phosphate 44 MEQ in 0.9 % Sodium Chloride 250 ML IVPB ONE (07:52)
[2020-04-26] MEDS ORDERED: Magnesium Sulfate 1 GM/102 ML PIGGYBACK IVPB ONE (07:55)
[2020-04-26] MEDS: cefTRIAXone 1,000 MG in Water for inj. (sterile) 10 ML IVP SCH (08:01)
[2020-04-26] MEDS: Cholecalciferol (D-3) 1,000 UNIT (25MCG) TABLET PO SCH (08:02)
[2020-04-26] MEDS: *HR* OxyCODONE Immed Rel 5 MG TABLET PO SCH ×2 (08:02→13:42)
[2020-04-26] MEDS: Nicotine 14 MG PATCH.TD24 TD SCH (08:03)
[2020-04-26] MEDS ORDERED: Magnesium Oxide 400 MG TABLET PO SCH (09:00)
[2020-04-26] MEDS: Calcium Gluconate 1gm/50mL 1 GM/50 ML BAG IVPB SCH ×2 (09:33→10:15)
[2020-04-26] MEDS: dexAMETHasone 4 MG TABLET PO SCH (13:45)
[2020-04-26] MEDS: Melatonin 3 MG TABLET PO SCH (19:39)
[2020-04-27 04:32] LABS: Basophils % 0.1 %; Hematocrit 24.4 % (37.5-50.1); Hemoglobin 7.6 g/dL (12.9-16.9); Immature Granulocytes % 1.1 % (0-4); Lymphocytes # 0.9 K/mcL (0.6-4.6); Mean Corpuscular HGB Conc 31.1 g/dL (31.6-35.5); Mean Corpuscular Hemoglobin 27.9 pg (28.0-33.3); Mean Corpuscular Volume 89.7 fL (83.0-100.0); Mean Platelet Volume 10.6 fL (9.4-12.4); Monocytes # 0.5 K/mcL (0.0-1.3); Monocytes % 3.9 %; Neutrophils # 11.8 K/mcL (1.6-8.9); Platelet Count 196 K/mcL (140-400); Red Blood Count 2.72 M/mcL (4.19-5.50); Red Cell Distribution Width 15.2 % (11.5-14.5); Segmented Neutrophils % 87.9 %
[2020-04-27 04:34] LABS: White Blood Count 13.4 K/mcL (4.3-11.1)
[2020-04-27 04:56] LABS: Calcium 7.1 mg/dL (8.6-10.3); Potassium 4.4 mEq/L (3.5-5.1)
[2020-04-27] MEDS: *HR* Heparin 5,000 UNIT/ML VIAL SQ SCH ×2 (07:04→17:46)
[2020-04-27] MEDS: *HR* OxyCODONE Immed Rel 5 MG TABLET PO SCH (08:22)
[2020-04-27] MEDS: Cefdinir 300 MG CAPSULE PO SCH ×2 (08:23→20:32)
[2020-04-27] MEDS: Cholecalciferol (D-3) 1,000 UNIT (25MCG) TABLET PO SCH (08:23)
[2020-04-27] MEDS: dexAMETHasone 4 MG TABLET PO SCH (08:23)
[2020-04-27] MEDS: Nicotine 14 MG PATCH.TD24 TD SCH (08:24)
[2020-04-27] MEDS: *HR* OxyCODONE Immed Rel 5 MG TABLET PO PRN (14:39)
[2020-04-27] MEDS: Melatonin 3 MG TABLET PO SCH (20:36)
[2020-04-28 04:45] LABS: Basophils % 0.2 %; Hematocrit 25.3 % (37.5-50.1); Immature Granulocytes % 1.7 % (0-4); Lymphocytes # 1.4 K/mcL (0.6-4.6); Lymphocytes % 10.5 %; Mean Corpuscular HGB Conc 31.6 g/dL (31.6-35.5); Mean Corpuscular Hemoglobin 29.2 pg (28.0-33.3); Mean Corpuscular Volume 92.3 fL (83.0-100.0); Monocytes # 0.8 K/mcL (0.0-1.3); Neutrophils # 10.6 K/mcL (1.6-8.9); Platelet Count 219 K/mcL (140-400); Red Blood Count 2.74 M/mcL (4.19-5.50); Red Cell Distribution Width 15.1 % (11.5-14.5); Segmented Neutrophils % 81.6 %
[2020-04-28 05:04] LABS: Calcium 7.4 mg/dL (8.6-10.3); Potassium 4.9 mEq/L (3.5-5.1)
[2020-04-28] MEDS: *HR* Heparin 5,000 UNIT/ML VIAL SQ SCH ×2 (05:14→18:38)
[2020-04-28] MEDS: *HR* OxyCODONE Immed Rel 5 MG TABLET PO SCH ×2 (06:08→14:13)
[2020-04-28] MEDS: Cefdinir 300 MG CAPSULE PO SCH ×2 (08:57→21:36)
[2020-04-28] MEDS: 0.9 % Sodium Chloride 1,000 ML IVC SCH ×2 (08:57→21:36)
[2020-04-28] MEDS: Cholecalciferol (D-3) 1,000 UNIT (25MCG) TABLET PO SCH (08:57)
[2020-04-28] MEDS: Nicotine 14 MG PATCH.TD24 TD SCH (08:58)
[2020-04-28] MEDS: dexAMETHasone 4 MG TABLET PO SCH (08:58)
[2020-04-28] MEDS ORDERED: Lidocaine -MPF 2% 2 ML VIAL ONE (13:11)
[2020-04-28] MEDS ORDERED: *HR* Propofol 200 MG/20 ML VIAL IVP ONE (13:13)
[2020-04-28] MEDS: Melatonin 3 MG TABLET PO SCH (21:36)
[2020-04-28] MEDS: *HR* OxyCODONE Immed Rel 5 MG TABLET PO PRN (23:10)
[2020-04-29] MEDS: *HR* OxyCODONE Immed Rel 5 MG TABLET PO SCH ×2 (06:09→13:24)
[2020-04-29] MEDS: *HR* Heparin 5,000 UNIT/ML VIAL SQ SCH (06:09)
[2020-04-29 07:05] VITALS: BP 139/79
[2020-04-29] MEDS: dexAMETHasone 4 MG TABLET PO SCH (09:15)
[2020-04-29] MEDS: Nicotine 14 MG PATCH.TD24 TD SCH (09:15)
[2020-04-29] MEDS: Cholecalciferol (D-3) 1,000 UNIT (25MCG) TABLET PO SCH (09:15)
[2020-04-29] MEDS: Cefdinir 300 MG CAPSULE PO SCH (09:15)
== END 2020-04-29 13:52 | disposition home health service (06) | DRG 371 ==
LOC: 3ANU 10:19 → EMEROOARM 10:19 → SUATTDRO 12:52 → 3ANU 13:37
PROVIDERS: ADMIT Student in an Organized Health Care Education/Training Program; ATTEND Internal Medicine
PROC: ENDOEBX (2020-04-28 14:20)

== ENCOUNTER 2020-05-25 15:40 | Inpatient (IN) ==
[2020-05-25 18:03] LABS: Basophils # 0.1 K/mcL (0.0-0.2); Basophils % 0.4 %; Eosinophils # 0.1 K/mcL (0.0-0.6); Hematocrit 36.4 % (37.5-50.1); Hemoglobin 11.2 g/dL (12.9-16.9); Immature Granulocytes % 0.5 % (0-4); Lymphocytes # 1.5 K/mcL (0.6-4.6); Lymphocytes % 11.9 %; Mean Corpuscular HGB Conc 30.8 g/dL (31.6-35.5); Mean Corpuscular Hemoglobin 27.7 pg (28.0-33.3); Mean Corpuscular Volume 90.1 fL (83.0-100.0); Mean Platelet Volume 10.2 fL (9.4-12.4); Monocytes # 1.1 K/mcL (0.0-1.3); Monocytes % 8.5 %; Neutrophils # 9.7 K/mcL (1.6-8.9); Platelet Count 228 K/mcL (140-400); Red Blood Count 4.04 M/mcL (4.19-5.50); Segmented Neutrophils % 77.7 %; White Blood Count 12.5 K/mcL (4.3-11.1)
[2020-05-25 18:23] LABS: Calcium 7.2 mg/dL (8.6-10.3); Magnesium 2.5 mg/dL (1.6-2.6); Potassium 4.3 mEq/L (3.5-5.1)
[2020-05-25 21:05] LABS: Adenovirus Not Detected (Not Detect); Coronavirus 229E Not Detected (Not Detect); Coronavirus HKU1 Not Detected (Not Detect); Coronavirus NL63 Not Detected (Not Detect); Coronavirus OC43 Not Detected (Not Detect); Human Metapneumovirus Not Detected (Not Detect); Human Rhinovirus/Enterovirus Not Detected (Not Detect); Influenza A Subtype 2009 H1 Not Detected (Not Detect); Influenza B Not Detected (Not Detect); Parainfluenza Virus 1 Not Detected (Not Detect); Parainfluenza Virus 2 Not Detected (Not Detect); Parainfluenza Virus 3 Not Detected (Not Detect); SARS-CoV-2 Not Detected (Not Detect)
[2020-05-25 21:06] LABS: Bordetella Pertussis Not Detected (Not Detect); Chlamydophila pneumoniae Not Detected (Not Detect); Mycoplasma pneumoniae Not Detected (Not Detect); Parainfluenza Virus 4 Not Detected (Not Detect); Respiratory Syncytial Virus Not Detected (Not Detect)
[2020-05-25] MEDS ORDERED: Naloxone 0.4 MG/ML INJ IVP PRN (21:58)
[2020-05-26 01:40] LABS: Basophils % 0.3 %; Eosinophils # 0.1 K/mcL (0.0-0.6); Eosinophils % 0.7 %; Hematocrit 32.4 % (37.5-50.1); Hemoglobin 10.1 g/dL (12.9-16.9); Immature Granulocytes % 0.9 % (0-4); Lymphocytes # 0.9 K/mcL (0.6-4.6); Lymphocytes % 7.7 %; Mean Corpuscular HGB Conc 31.2 g/dL (31.6-35.5); Mean Corpuscular Hemoglobin 27.7 pg (28.0-33.3); Mean Corpuscular Volume 88.8 fL (83.0-100.0); Mean Platelet Volume 10.3 fL (9.4-12.4); Monocytes # 0.9 K/mcL (0.0-1.3); Monocytes % 7.7 %; Platelet Count 217 K/mcL (140-400); Red Blood Count 3.65 M/mcL (4.19-5.50); Segmented Neutrophils % 82.7 %; White Blood Count 12.2 K/mcL (4.3-11.1)
[2020-05-26 01:43] LABS: INR 1.1; Prothrombin Time 13.2 Seconds (9.4-12.1)
[2020-05-26 01:45] LABS: Activated Partial Thrombo Time 28.6 Seconds (26.0-36.0)
[2020-05-26 01:59] LABS: Albumin/Globulin Ratio 0.9 (1.1-2.2); Bilirubin,Total 0.3 mg/dL (0.3-1.0); Calcium 6.4 mg/dL (8.6-10.3); Globulin 3.2 g/dL (2.4-3.5); Magnesium 2.2 mg/dL (1.6-2.6); Phosphorous 5.5 mg/dL (2.7-4.5); Potassium 3.7 mEq/L (3.5-5.1); Total Protein 6.2 g/dL (6.4-8.9)
[2020-05-26] MEDS: Nicotine 21 MG PATCH.TD24 TD SCH (06:29)
[2020-05-26] MEDS ORDERED: 0.9 % Sodium Chloride 500 ML ONE (09:28)
[2020-05-26] MEDS: *HR* OxyCODONE Immed Rel 5 MG TABLET PO PRN ×2 (09:38→17:09)
[2020-05-26] MEDS ORDERED: Vancomycin 1 EACH in 0.9 % Sodium Chloride 250 ML IVPB SCH (13:00)
[2020-05-26] MEDS: Piperacillin/Tazobactam 3.375 GM in 0.9 % Sodium Chloride Mini Bag 100 ML IVPB SCH ×2 (13:16→22:14)
[2020-05-26 14:35] LABS: Bacteria,Urine Few per hpf (None-Few); Bilirubin,Urine Negative (Negative); Blood,Urine Large (Negative); Budding Yeast,Urine Moderate per hpf (None Seen); Clarity,Urine Ex.Turbid (Clear); Color,Urine Yellow (Yellow); Glucose,Urine (UA) Normal (Normal); Ketones,Urine Negative (Negative); Leukocyte Esterase,Urine Large (Negative); Nitrite,Urine Negative (Negative); Protein,Urine 100 mg/dL (Neg-Trace); RBC,Urine TNTC per hpf (0-3); Specific Gravity,Urine 1.011 (1.010-1.025); Urobilinogen,Urine Normal (Normal); WBC,Urine TNTC per hpf (0-3)
[2020-05-26 14:40] LABS: Sodium, Urine 44.7 mEq/L
[2020-05-26] MEDS ORDERED: 0.9 % Sodium Chloride 1,000 ML IVC SCH (14:45)
[2020-05-26 15:44] LABS: Uric Acid 12.6 mg/dL (2.3-7.6)
[2020-05-26] MEDS: Ondansetron 4 MG/2 ML VIAL IVP PRN (22:14)
[2020-05-27] MEDS: Nicotine 21 MG PATCH.TD24 TD SCH ×2 (02:22→23:47)
[2020-05-27] MEDS: *HR* OxyCODONE Immed Rel 5 MG TABLET PO PRN ×3 (07:46→23:57)
[2020-05-27 10:37] LABS: Hematocrit 32.6 % (37.5-50.1); Hemoglobin 10.2 g/dL (12.9-16.9); Mean Corpuscular HGB Conc 31.3 g/dL (31.6-35.5); Mean Corpuscular Hemoglobin 27.5 pg (28.0-33.3); Mean Corpuscular Volume 87.9 fL (83.0-100.0); Mean Platelet Volume 9.8 fL (9.4-12.4); Platelet Count 217 K/mcL (140-400); Red Blood Count 3.71 M/mcL (4.19-5.50); Red Cell Distribution Width 16.7 % (11.5-14.5); White Blood Count 10.7 K/mcL (4.3-11.1)
[2020-05-27 10:58] LABS: Calcium 6.4 mg/dL (8.6-10.3); Phosphorous 3.1 mg/dL (2.7-4.5); Potassium 3.2 mEq/L (3.5-5.1)
[2020-05-27] MEDS: Multivit/Ca/Min/Fe/FA 1 TAB TABLET PO SCH (11:12)
[2020-05-27] MEDS: Cholecalciferol (D-3) 1,000 UNIT (25MCG) TABLET PO SCH (11:13)
[2020-05-27] MEDS: Cyanocobalamin (B-12) 1,000 MCG TABLET PO SCH (11:13)
[2020-05-27] MEDS: Ascorbic Acid 500 MG TABLET PO SCH (11:14)
[2020-05-27] MEDS: Ondansetron 4 MG/2 ML VIAL IVP PRN (11:15)
[2020-05-27] MEDS: Piperacillin/Tazobactam 3.375 GM in 0.9 % Sodium Chloride Mini Bag 100 ML IVPB SCH ×2 (11:16→23:47)
[2020-05-27 11:19] LABS: Folate 14.3 ng/mL (3.0-16.0)
[2020-05-27 11:27] LABS: Vitamin B12 > 1500 pg/mL (250-1100)
[2020-05-27] MEDS ORDERED: 0.9 % Sodium Chloride 1,000 ML IVC SCH (11:45)
[2020-05-27] MEDS: Doxycycline 100 MG CAPSULE PO SCH (16:36)
[2020-05-27] MEDS: Fluconazole 100 MG TABLET PO SCH (16:36)
[2020-05-27] MEDS ORDERED: *HR* Alteplase (Cathflo) 2 MG VIAL IVP ONE ×2 (20:00→22:42)
[2020-05-27] MEDS: Melatonin 3 MG TABLET PO SCH (20:59)
[2020-05-28] MEDS: Ondansetron 4 MG/2 ML VIAL IVP PRN (01:32)
[2020-05-28 04:38] LABS: Hematocrit 30.4 % (37.5-50.1); Hemoglobin 9.7 g/dL (12.9-16.9); Mean Corpuscular HGB Conc 31.9 g/dL (31.6-35.5); Mean Corpuscular Hemoglobin 28.4 pg (28.0-33.3); Mean Corpuscular Volume 89.1 fL (83.0-100.0); Mean Platelet Volume 10.4 fL (9.4-12.4); Platelet Count 218 K/mcL (140-400); Red Blood Count 3.41 M/mcL (4.19-5.50); Red Cell Distribution Width 16.9 % (11.5-14.5); White Blood Count 10.1 K/mcL (4.3-11.1)
[2020-05-28 04:56] LABS: Calcium 6.2 mg/dL (8.6-10.3); Magnesium 1.7 mg/dL (1.6-2.6); Phosphorous 2.2 mg/dL (2.7-4.5); Potassium 3.5 mEq/L (3.5-5.1)
[2020-05-28] MEDS: Doxycycline 100 MG CAPSULE PO SCH ×2 (05:40→16:09)
[2020-05-28] MEDS: Cyanocobalamin (B-12) 1,000 MCG TABLET PO SCH (07:31)
[2020-05-28] MEDS: Cholecalciferol (D-3) 1,000 UNIT (25MCG) TABLET PO SCH (07:31)
[2020-05-28] MEDS: Ascorbic Acid 500 MG TABLET PO SCH (07:31)
[2020-05-28] MEDS: Multivit/Ca/Min/Fe/FA 1 TAB TABLET PO SCH (07:31)
[2020-05-28] MEDS: Fluconazole 100 MG TABLET PO SCH (07:31)
[2020-05-28] MEDS: 0.9 % Sodium Chloride 1,000 ML IVC SCH ×2 (10:48→21:12)
[2020-05-28] MEDS: Piperacillin/Tazobactam 3.375 GM in 0.9 % Sodium Chloride Mini Bag 100 ML IVPB SCH ×2 (10:49→23:03)
[2020-05-28] MEDS: Melatonin 3 MG TABLET PO SCH (21:11)
[2020-05-29] MEDS: Nicotine 21 MG PATCH.TD24 TD SCH (01:19)
[2020-05-29 02:15] LABS: Calcium 6.2 mg/dL (8.6-10.3); Magnesium 1.5 mg/dL (1.6-2.6); Phosphorous 1.6 mg/dL (2.7-4.5); Potassium 3.5 mEq/L (3.5-5.1)
[2020-05-29 05:09] LABS: Hematocrit 29.2 % (37.5-50.1); Hemoglobin 9.2 g/dL (12.9-16.9); Mean Corpuscular HGB Conc 31.5 g/dL (31.6-35.5); Mean Corpuscular Hemoglobin 28.2 pg (28.0-33.3); Mean Corpuscular Volume 89.6 fL (83.0-100.0); Mean Platelet Volume 10.7 fL (9.4-12.4); Platelet Count 231 K/mcL (140-400); Red Blood Count 3.26 M/mcL (4.19-5.50); Red Cell Distribution Width 17.2 % (11.5-14.5); White Blood Count 8.8 K/mcL (4.3-11.1)
[2020-05-29] MEDS: Doxycycline 100 MG CAPSULE PO SCH ×2 (05:44→19:57)
[2020-05-29] MEDS: Fluconazole 100 MG TABLET PO SCH (08:02)
[2020-05-29] MEDS: Cyanocobalamin (B-12) 1,000 MCG TABLET PO SCH (08:02)
[2020-05-29] MEDS: 0.9 % Sodium Chloride 1,000 ML IVC SCH ×2 (08:02→15:28)
[2020-05-29] MEDS: Diphenoxylate/Atropine 1 TAB TABLET PO PRN (08:03)
[2020-05-29] MEDS: Ascorbic Acid 500 MG TABLET PO SCH (08:03)
[2020-05-29] MEDS: *HR* OxyCODONE Immed Rel 5 MG TABLET PO PRN ×2 (08:03→15:27)
[2020-05-29] MEDS: Cholecalciferol (D-3) 1,000 UNIT (25MCG) TABLET PO SCH (08:03)
[2020-05-29] MEDS: Multivit/Ca/Min/Fe/FA 1 TAB TABLET PO SCH (08:03)
[2020-05-29] MEDS: Piperacillin/Tazobactam 3.375 GM in 0.9 % Sodium Chloride Mini Bag 100 ML IVPB SCH ×2 (10:31→23:32)
[2020-05-29] MEDS: Melatonin 3 MG TABLET PO SCH (21:29)
[2020-05-30] MEDS: Nicotine 21 MG PATCH.TD24 TD SCH (02:16)
[2020-05-30] MEDS: 0.9 % Sodium Chloride 1,000 ML IVC SCH ×3 (06:14→20:34)
[2020-05-30] MEDS: Doxycycline 100 MG CAPSULE PO SCH ×2 (06:23→17:33)
[2020-05-30] MEDS: Cholecalciferol (D-3) 1,000 UNIT (25MCG) TABLET PO SCH (09:27)
[2020-05-30] MEDS: Ascorbic Acid 500 MG TABLET PO SCH (09:27)
[2020-05-30] MEDS: Multivit/Ca/Min/Fe/FA 1 TAB TABLET PO SCH (09:27)
[2020-05-30] MEDS: Cyanocobalamin (B-12) 1,000 MCG TABLET PO SCH (09:27)
[2020-05-30] MEDS: Piperacillin/Tazobactam 3.375 GM in 0.9 % Sodium Chloride Mini Bag 100 ML IVPB SCH ×2 (09:28→22:30)
[2020-05-30] MEDS: Fluconazole 100 MG TABLET PO SCH (09:28)
[2020-05-30] MEDS: *HR* OxyCODONE Immed Rel 5 MG TABLET PO PRN ×2 (09:28→17:33)
[2020-05-30 10:51] LABS: Hematocrit 29.7 % (37.5-50.1); Hemoglobin 9.3 g/dL (12.9-16.9); Mean Corpuscular HGB Conc 31.3 g/dL (31.6-35.5); Mean Corpuscular Hemoglobin 27.5 pg (28.0-33.3); Mean Corpuscular Volume 87.9 fL (83.0-100.0); Mean Platelet Volume 10.1 fL (9.4-12.4); Platelet Count 212 K/mcL (140-400); Red Blood Count 3.38 M/mcL (4.19-5.50); Red Cell Distribution Width 17.4 % (11.5-14.5); White Blood Count 11.5 K/mcL (4.3-11.1)
[2020-05-30 11:12] LABS: Calcium 6.4 mg/dL (8.6-10.3); Magnesium 1.5 mg/dL (1.6-2.6); Phosphorous 1.8 mg/dL (2.7-4.5); Potassium 3.7 mEq/L (3.5-5.1)
[2020-05-30] MEDS: Ipratropium/Albuterol Neb 3 ML IH SCH ×3 (13:42→21:11)
[2020-05-30] MEDS: Diphenoxylate/Atropine 1 TAB TABLET PO PRN (17:33)
[2020-05-30] MEDS: Melatonin 3 MG TABLET PO SCH (20:35)
[2020-05-31] MEDS: Nicotine 21 MG PATCH.TD24 TD SCH (02:05)
[2020-05-31] MEDS: *HR* OxyCODONE Immed Rel 5 MG TABLET PO PRN ×2 (02:05→11:13)
[2020-05-31] MEDS: Ipratropium/Albuterol Neb 3 ML IH SCH ×3 (03:47→15:45)
[2020-05-31] MEDS: Doxycycline 100 MG CAPSULE PO SCH ×2 (05:50→16:14)
[2020-05-31] MEDS: 0.9 % Sodium Chloride 1,000 ML IVC SCH (05:51)
[2020-05-31] MEDS: Fluconazole 100 MG TABLET PO SCH (08:31)
[2020-05-31] MEDS: Multivit/Ca/Min/Fe/FA 1 TAB TABLET PO SCH (08:31)
[2020-05-31] MEDS: Cholecalciferol (D-3) 1,000 UNIT (25MCG) TABLET PO SCH (08:31)
[2020-05-31] MEDS: Cyanocobalamin (B-12) 1,000 MCG TABLET PO SCH (08:31)
[2020-05-31] MEDS: Ascorbic Acid 500 MG TABLET PO SCH (08:31)
[2020-05-31 08:36] LABS: Hematocrit 25.3 % (37.5-50.1); Hemoglobin 8.1 g/dL (12.9-16.9); Mean Corpuscular Hemoglobin 28.2 pg (28.0-33.3); Mean Corpuscular Volume 88.2 fL (83.0-100.0); Mean Platelet Volume 9.7 fL (9.4-12.4); Platelet Count 176 K/mcL (140-400); Red Blood Count 2.87 M/mcL (4.19-5.50); Red Cell Distribution Width 17.1 % (11.5-14.5); White Blood Count 9.8 K/mcL (4.3-11.1)
[2020-05-31 08:57] LABS: Calcium 6.2 mg/dL (8.6-10.3); Magnesium 1.6 mg/dL (1.6-2.6); Phosphorous 2.1 mg/dL (2.7-4.5); Potassium 3.6 mEq/L (3.5-5.1)
[2020-05-31] MEDS ORDERED: Piperacillin/Tazobactam 3.375 GM in 0.9 % Sodium Chloride Mini Bag 100 ML IVPB SCH (11:00)
[2020-05-31 11:12] VITALS: BP 119/68
== END 2020-05-31 16:58 | disposition hospice, home (50) | DRG 698 ==
LOC: 2ANU 15:40 → EMEROOARM 15:40 → SUATTDRO 21:13 → 2ANU 21:45
PROVIDERS: ADMIT Family Medicine; ATTEND Internal Medicine